=== PATIENT | female | born 1955 | race Caucasian/White ===

== ENCOUNTER 2019-04-23 17:56 | Inpatient (IN) | payer BC ==
[~2019-04-23] VITALS: Ht 154.9 cm; Wt 73.6 kg
[2019-04-23 18:52] LABS: BASOPHILS # (AUTO) 0.1 X10'3 (0-0.2); BASOPHILS % (AUTO) 1.2 % (0-1); EOSINOPHILS # (AUTO) 0.2 X10'3 (0-0.9); EOSINOPHILS % (AUTO) 2.8 % (0-6); LYMPHOCYTES # (AUTO) 1.8 X10'3 (1.1-4.8); LYMPHOCYTES % (AUTO) 21.4 % (21-51); MEAN CORPUSCULAR HEMOGLOBIN 28.9 PG (27.0-31.0); MEAN CORPUSCULAR HGB CONC 33.3 g/dL (33.0-36.5); MEAN CORPUSCULAR VOLUME 86.8 FL (78-98); MEAN PLATELET VOLUME 9.8 FL (7.4-10.4); MONOCYTES # (AUTO) 0.5 X10'3 (0-0.9); MONOCYTES % (AUTO) 6.1 % (2-12); NEUTROPHILS # (AUTO) 5.9 X10'3 (1.8-7.7); NEUTROPHILS % (AUTO) 68.5 % (42-75); PLATELET COUNT 251 X10'3 (140-440); RED BLOOD COUNT 4.84 X10'6 (4.20-5.60); RED CELL DISTRIBUTION WIDTH 14.8 % (11.5-14.5); WHITE BLOOD COUNT 8.6 X10'3 (4.5-11.0)
[2019-04-23 18:57] LABS: CLARITY,URINE CLEAR (Clear); COLOR,URINE YELLOW (Yellow); GLUCOSE, URINE NEGATIVE (Neg); KETONES,URINE NEGATIVE (Neg); LEUKOCYTE ESTERASE ,URINE TRACE (Neg); NITRITES, URINE NEGATIVE (Neg); OCCULT BLOOD,URINE NEGATIVE (Neg); PH,URINE 7.5 (4.8-8.0); PROTEIN,URINE NEGATIVE (Neg); UROBILINOGEN,URINE 0.2 E.U/dL (0.2-1.0)
[2019-04-23 18:59] LABS: UA COLLECTION TYPE CLN CATCH MIDSTREAM
[2019-04-23 19:10] LABS: BACTERIA,URINE NONE SEEN /HPF (Neg); MUCUS STRANDS NONE SEEN /LPF (Neg); RBC,URINE 0-2 /HPF (0-2); SQUAMOUS EPITHELIAL CELL,UR FEW /LPF (FEW); WBC,URINE 0-4 /HPF (0-4)
[2019-04-23 19:14] LABS: ALANINE AMINOTRANSFERASE 92 U/L (12-78); ALBUMIN 3.9 G/DL (3.4-5.0); ALKALINE PHOSPHATASE 100 IU/L (46-116); ANION GAP 9 (8-16); ASPARTATE AMINO TRANSFERASE 72 U/L (10-37); BILIRUBIN,TOTAL 0.3 MG/DL (0.1-1.0); BLOOD UREA NITROGEN 22 MG/DL (7-18); BUN/CREATININE RATIO 19.8 (6.6-38.0); CHLORIDE 105 MMOL/L (99-107); CREATININE 1.11 MG/DL (0.40-0.90); GLUCOSE 132 MG/DL (70-104); LIPASE 201 U/L (73-393); POTASSIUM 3.8 MMOL/L (3.5-5.1); SODIUM 140 MMOL/L (135-145); TOTAL CARBON DIOXIDE 25.6 MMOL/L (24-32); eGFR 50 ML/MIN
[2019-04-23 19:22] LABS: CALCIUM 10.5 MG/DL (8.5-10.1)
[2019-04-23] MEDS ORDERED: tamsulosin 0.4mg capsule PO STA (19:34)
[2019-04-23] MEDS ORDERED: ketorolac trometh. 30mg/ml inj. IV ONE (19:35)
[2019-04-23] MEDS ORDERED: normal saline 1000ML IV soln IV ONE (19:35)
--- NOTE | 2019-04-23 19:46 | NUR ---
CLEM Ruff in room to evaluate Pt. Provider informing Pt she has a kidney stone.
[2019-04-23] MEDS ORDERED: ondansetron/PF 4mg/2ml inj IV ONE ×2 (19:50→21:55)
[2019-04-23] MEDS ORDERED: morphine 4 MG/ML inj SYRINge IV ONE (19:50)
[2019-04-23] MEDS ORDERED: fentaNYL/PF 50MCG/1 ML 2ML syringe IV ONE (20:20)
[2019-04-23] MEDS ORDERED: HYDROmorphone 1 mg/ml syringe IV ONE (20:55)
[2019-04-23] MEDS ORDERED: FENO145T36 PO (21:07)
[2019-04-23] MEDS ORDERED: ERGO500014 PO (21:07)
[2019-04-23] MEDS ORDERED: DIPH50CA3 PO (21:07)
[2019-04-23] MEDS ORDERED: LEVO25TA7 PO (21:07)
[2019-04-23] MEDS ORDERED: HYDROmorphone 1 mg/ml syringe IV PRN (22:05)
[2019-04-23] MEDS ORDERED: acetaminophen 325mg tablet PO PRN (22:05)
[2019-04-23] MEDS ORDERED: CADD PCA waste documentation MC PRN (22:10)
[2019-04-23] MEDS ORDERED: amLODIPine 5mg tablet PO ONE (22:10)
[2019-04-23] MEDS ORDERED: naloxone 0.4 mg/ml inj IV PRN (22:10)
[2019-04-23] MEDS ORDERED: proCHLORperazine 10 MG/2 ml inj IV PRN (22:55)
[2019-04-23] MEDS: HYDROmorphone/NS 1 mg/ml CADD 50 ML IV SCH (23:08)
[2019-04-24] MEDS: normal saline 1000ml 1,000 ML IV SCH ×5 (00:05→21:17)
--- NOTE | 2019-04-24 00:25 | NUR ---
PT VOMITED AFTER GIVING AMLODIPINE WITH SIP OF WATER. PT NOW NOT NAUSEATED ANYMORE, AND RESTING COMFORTABLY WITH PAIN MANAGED. WILL CONTINUE TO MONITOR PT
[2019-04-24] MEDS: HYDROmorphone/NS 1 mg/ml CADD 50 ML IV SCH ×11 (01:07→21:00)
--- NOTE | 2019-04-24 01:09 | NUR ---
pt resting comfortably, pain 3/10. pt hr decreases down to 49 bpm, pt placed on signal tester. will continue to monitor
--- NOTE | 2019-04-24 01:20 | NUR ---
PT HR CONTINUED TO DROP TO LOW 40S WHILE PT ASLEEP. CONCETTA JIN NOTIFIED AND CAME TO BEDSIDE AND PT AWOKE AND HR UP TO 60S. CONCETTA JIN STATES EVERYTHING LOOKS OK. WILL CONTINUE TO MONITOR
[2019-04-24] MEDS: ondansetron/PF 4mg/2ml inj IV PRN ×4 (02:35→20:26)
--- NOTE | 2019-04-24 02:43 | NUR ---
pt placed on hospital bed for comfort
[2019-04-24 03:15] LABS: BASOPHILS # (AUTO) 0.1 X10'3 (0-0.2); BASOPHILS % (AUTO) 0.8 % (0-1); EOSINOPHILS # (AUTO) 0.1 X10'3 (0-0.9); EOSINOPHILS % (AUTO) 0.8 % (0-6); HEMATOCRIT 36.5 % (35.0-45.0); HEMOGLOBIN 12.5 g/dl (12.0-16.0); LYMPHOCYTES # (AUTO) 1.3 X10'3 (1.1-4.8); LYMPHOCYTES % (AUTO) 15.2 % (21-51); MEAN CORPUSCULAR HEMOGLOBIN 29.2 PG (27.0-31.0); MEAN CORPUSCULAR HGB CONC 34.2 g/dL (33.0-36.5); MEAN CORPUSCULAR VOLUME 85.4 FL (78-98); MEAN PLATELET VOLUME 10.1 FL (7.4-10.4); MONOCYTES # (AUTO) 0.4 X10'3 (0-0.9); MONOCYTES % (AUTO) 4.9 % (2-12); NEUTROPHILS # (AUTO) 6.9 X10'3 (1.8-7.7); NEUTROPHILS % (AUTO) 78.3 % (42-75); PLATELET COUNT 195 X10'3 (140-440); RED BLOOD COUNT 4.28 X10'6 (4.20-5.60); WHITE BLOOD COUNT 8.8 X10'3 (4.5-11.0)
[2019-04-24 03:45] LABS: ALANINE AMINOTRANSFERASE 76 U/L (12-78); ALBUMIN 3.6 G/DL (3.4-5.0); ALKALINE PHOSPHATASE 87 IU/L (46-116); ANION GAP 10 (8-16); ASPARTATE AMINO TRANSFERASE 56 U/L (10-37); BILIRUBIN,TOTAL 0.3 MG/DL (0.1-1.0); BLOOD UREA NITROGEN 18 MG/DL (7-18); BUN/CREATININE RATIO 18.4 (6.6-38.0); CALCIUM 8.1 MG/DL (8.5-10.1); CHLORIDE 108 MMOL/L (99-107); CREATININE 0.98 MG/DL (0.40-0.90); GLUCOSE 131 MG/DL (70-104); POTASSIUM 3.8 MMOL/L (3.5-5.1); SODIUM 142 MMOL/L (135-145); TOTAL CARBON DIOXIDE 24.1 MMOL/L (24-32); TOTAL PROTEIN 7.2 G/DL (6.4-8.2); eGFR 58 ML/MIN
[2019-04-24 04:27] VITALS: BP 189/87
--- NOTE | 2019-04-24 06:44 | NUR ---
REPORT GIVEN TO AZ SANDOVAL.
[2019-04-24] MEDS: levoTHYROXINE 25mcg tablet PO SCH (07:17)
--- NOTE | 2019-04-24 11:06 | NUR ---
Student documentation: I have reviewed all interventions, assessments performed and documented by Red Olson. Student Medication Administration: For this medication-pass time frame, all medication were reviewed, dispensed, administered and documented per hospital policy by Red Olson.
--- NOTE | 2019-04-24 15:31 | NUR ---
ASSUMED CARE OF PATIENT FROM LORI BERNARDO, NO QUESTIONS, I AGREE WITH PRIOR ASSESSMENT. PATIENT SITTING WITH HOB @ 30 DEGREES. PATIENT STATES NO DISTRESS OR PAIN AT THIS TIME.
--- NOTE | 2019-04-24 17:07 | NUR ---
patient up to restroom, pt called because she felt something weird and when she looked into urine hat there was a brown object in there. Nursing in to assess, sample collected into sterile urine cup and Dr. Logan office called. I talked with his nurse and she will text him to see if he wants any testing done on sample.
[2019-04-24 18:32] VITALS: BP 131/58
[2019-04-24] MEDS ORDERED: proCHLORperazine 10 MG/2 ml inj IV PRN (20:40)
[2019-04-24] MEDS ORDERED: HYDROcodone/acetaminophen 5mg/325mg tablet PO PRN (20:40)
--- NOTE | 2019-04-24 20:40 | NUR ---
Dr. Tirado notified regarding nausea unrelieved by Zofran 8 mg IV given, orders received for Compazine 5 mg IV Q 6 hours prn nausea and [place] 5 mg PO Q 4 prn pain. Pt changed to Reg JUSTICE. Addendum: 04/24/19 at 2243 by Damaris Pierre RN Amended: Links added.
[2019-04-24] MEDS ORDERED: tamsulosin 0.4mg capsule PO SCH (21:00)
--- NOTE | 2019-04-24 22:27 | NUR ---
Report called by AZ Forde. awaiting patient arrival to unit
--- NOTE | 2019-04-24 22:28 | NUR ---
Problems reprioritized. Patient report given, questions answered & plan of care reviewed with AZ Salcedo.
--- NOTE | 2019-04-24 22:36 | NUR ---
pt arrived to unit from ortho/neuro. VSS, oriented to room, pt transferred self to bed. will continue to monitor
[2019-04-25] VITALS: BP 131/66
[2019-04-25 05:01] LABS: BASOPHILS # (AUTO) 0.1 X10'3 (0-0.2); EOSINOPHILS # (AUTO) 0.2 X10'3 (0-0.9); EOSINOPHILS % (AUTO) 3.5 % (0-6); HEMATOCRIT 32.7 % (35.0-45.0); HEMOGLOBIN 11.2 g/dl (12.0-16.0); LYMPHOCYTES # (AUTO) 1.5 X10'3 (1.1-4.8); LYMPHOCYTES % (AUTO) 28.7 % (21-51); MEAN CORPUSCULAR HEMOGLOBIN 29.7 PG (27.0-31.0); MEAN CORPUSCULAR HGB CONC 34.2 g/dL (33.0-36.5); MEAN CORPUSCULAR VOLUME 86.9 FL (78-98); MEAN PLATELET VOLUME 10.1 FL (7.4-10.4); MONOCYTES # (AUTO) 0.4 X10'3 (0-0.9); MONOCYTES % (AUTO) 7.8 % (2-12); PLATELET COUNT 164 X10'3 (140-440); RED BLOOD COUNT 3.76 X10'6 (4.20-5.60); RED CELL DISTRIBUTION WIDTH 14.8 % (11.5-14.5); WHITE BLOOD COUNT 5.1 X10'3 (4.5-11.0)
[2019-04-25 05:22] LABS: ALANINE AMINOTRANSFERASE 71 U/L (12-78); ALBUMIN 2.8 G/DL (3.4-5.0); ALBUMIN/GLOBULIN RATIO 0.9 (1.1-1.5); ALKALINE PHOSPHATASE 72 IU/L (46-116); ANION GAP 7 (8-16); ASPARTATE AMINO TRANSFERASE 61 U/L (10-37); BILIRUBIN,TOTAL 0.3 MG/DL (0.1-1.0); BLOOD UREA NITROGEN 11 MG/DL (7-18); BUN/CREATININE RATIO 11.6 (6.6-38.0); CALCIUM 7.7 MG/DL (8.5-10.1); CHLORIDE 109 MMOL/L (99-107); CREATININE 0.95 MG/DL (0.40-0.90); GLUCOSE 96 MG/DL (70-104); POTASSIUM 3.4 MMOL/L (3.5-5.1); SODIUM 142 MMOL/L (135-145); TOTAL CARBON DIOXIDE 25.7 MMOL/L (24-32); eGFR 60 ML/MIN
--- NOTE | 2019-04-25 06:41 | NUR ---
Problems reprioritized. Patient report given, questions answered & plan of care reviewed with AZ Celeste.
[2019-04-25 07:00] VITALS: BP 130/67
[2019-04-25] MEDS: levoTHYROXINE 25mcg tablet PO SCH (08:31)
[2019-04-25] MEDS: normal saline 1000ml 1,000 ML IV SCH ×2 (08:31→14:01)
[2019-04-25 11:00] VITALS: BP 164/70
[2019-04-25] MEDS ORDERED: tamsulosin capsule PO (13:55)
== END 2019-04-25 15:15 | disposition home or self-care (01) | DRG 694 ==
LOC: ER 17:57 → ED HOLD 22:54 → ORTHO 4S 04-24 03:58 → SUR 3N 04-24 22:44
PROVIDERS: ADMIT Internal Medicine; ATTEND Family Medicine
DX: N13.2 Hydronephrosis with renal and ureteral calculous obstruction (principal); M79.7 Fibromyalgia; G89.29 Other chronic pain; M19.90 Unspecified osteoarthritis, unspecified site; Z87.442 Personal history of urinary calculi; Z90.49 Acquired absence of other specified parts of digestive tract; Z88.1 Allergy status to other antibiotic agents
CPT/HCPCS: 36415; 74176; 80053; 81001; 83690; 85025; 87081; 87088; 96361; 96374; 96375; 96376; 99285; G0378; J0780; J1170; J1885; J2270; J2405; J3010; J7030

== ENCOUNTER 2021-02-06 12:53 | Emergency (ER) | payer BC, SELFPAY ==
[~2021-02-06] VITALS: Ht 152.4 cm; Wt 73.0 kg
[~2021-02-06 12:53] MED LIST: DIPH50CA3 PO; ERGO500014 PO; FENO145T26 PO; LEVO25TA7 PO; tamsulosin capsule PO
[2021-02-06 12:57] VITALS: BP 151/78
[2021-02-06] MEDS ORDERED: DEXA6TAB6 PO (14:50)
== END 2021-02-06 15:08 | disposition home or self-care (01) ==
LOC: ER 12:55
DX: R50.9 Fever, unspecified (principal); U07.1 COVID-19; G89.29 Other chronic pain; M54.9 Dorsalgia, unspecified; Z87.442 Personal history of urinary calculi
CPT/HCPCS: 71045; 87502; 87503; 87635; 99284; C9803

== ENCOUNTER 2021-02-12 06:05 | Inpatient (IN) | payer BC ==
[~2021-02-12] VITALS: Ht 152.4 cm; Wt 73.6 kg
[~2021-02-12 06:05] MED LIST changes: +DEXA6TAB6 PO
[2021-02-12] MEDS ORDERED: DEXAMETHASONE 6 MG TABLET PO SCH (08:00)
--- NOTE | 2021-02-12 08:54 | NUR ---
Son Jhonny, , will be waiting in car if its too hot outside in [place].
[2021-02-12 09:40] LABS: BASOPHILS % (AUTO) 0.1 % (0-1); EOSINOPHILS % (AUTO) 0 % (0-6); HEMATOCRIT 40.9 % (35.0-45.0); HEMOGLOBIN 13.6 g/dl (12.0-16.0); LYMPHOCYTES # (AUTO) 0.9 X10'3 (1.1-4.8); LYMPHOCYTES % (AUTO) 10.4 % (21-51); MEAN CORPUSCULAR HEMOGLOBIN 28.4 PG (27.0-31.0); MEAN CORPUSCULAR HGB CONC 33.3 g/dL (33.0-36.5); MEAN CORPUSCULAR VOLUME 85.3 FL (78-98); MEAN PLATELET VOLUME 9.4 FL (7.4-10.4); MONOCYTES # (AUTO) 0.7 X10'3 (0-0.9); MONOCYTES % (AUTO) 7.7 % (2-12); NEUTROPHILS # (AUTO) 6.9 X10'3 (1.8-7.7); NEUTROPHILS % (AUTO) 81.8 % (42-75); PLATELET COUNT 190 X10'3 (140-440); RED CELL DISTRIBUTION WIDTH 15.7 % (11.5-14.5); WHITE BLOOD COUNT 8.5 X10'3 (4.5-11.0)
[2021-02-12 09:52] LABS: PARTIAL THROMBOPLASTIN TIME 28 SECONDS (22-32)
[2021-02-12 09:53] LABS: ALANINE AMINOTRANSFERASE 121 U/L (12-78); ALBUMIN 3.2 G/DL (3.4-5.0); ALBUMIN/GLOBULIN RATIO 0.8 (1.1-1.5); ALKALINE PHOSPHATASE 114 IU/L (46-116); ANION GAP 11 (8-16); ASPARTATE AMINO TRANSFERASE 69 U/L (10-37); BILIRUBIN,TOTAL 0.5 MG/DL (0.1-1.0); BLOOD UREA NITROGEN 33 MG/DL (7-18); CALCIUM 8.5 MG/DL (8.5-10.1); CHLORIDE 102 MMOL/L (99-107); CREATININE 1.03 MG/DL (0.40-0.90); GLUCOSE 93 MG/DL (70-104); SODIUM 139 MMOL/L (135-145); TOTAL CARBON DIOXIDE 26.2 MMOL/L (24-32); TOTAL PROTEIN 7.4 G/DL (6.4-8.2); eGFR 54 ML/MIN
[2021-02-12 10:06] LABS: C-REACTIVE PROTEIN 5.48 MG/DL (0.0-0.5); FERRITIN 336 NG/ML (8-252); LACTATE DEHYDROGENASE 290 U/L (81-234)
[2021-02-12] MEDS ORDERED: magnesium hydroxide 30ml (MOM) UD suspension PO PRN (10:45)
[2021-02-12] MEDS ORDERED: potassium Cl 40MEQ/1/2NS 520ml 520 ML IV PRN ×2 (10:45)
[2021-02-12] MEDS ORDERED: magnesium 4gm in 100ml NS 100 ML IV PRN (10:45)
[2021-02-12] MEDS ORDERED: acetaminophen 325mg tablet PO PRN (10:45)
[2021-02-12] MEDS ORDERED: mag hydrox/Alum hydrox/simeth 30ml oral suspension PO PRN (10:45)
[2021-02-12] MEDS ORDERED: magnesium 2GM in 50ml NS 50 ML IV PRN (10:45)
[2021-02-12] MEDS ORDERED: albuterol 2.5 MG/3 ML nebule NEB PRN (10:45)
[2021-02-12] MEDS ORDERED: potassium Cl 20 mEq SR tablet PO PRN ×2 (10:45)
[2021-02-12] MEDS: ALBUTEROL INHALER 1 PUFF/90 MCG INHALER IH PRN (11:45)
[2021-02-12] MEDS ORDERED: DEXA6TAB PO (11:57)
[2021-02-12] MEDS ORDERED: REMDESIVIR (EUA) 100mg inj. 200 MG in normal saline 100ml IV soln 100 ML IV ONE (12:00)
[2021-02-12] MEDS: normal saline 1000ml 1,000 ML IV SCH ×2 (12:45→21:49)
[2021-02-12 14:51] VITALS: BP 128/74
--- NOTE | 2021-02-12 18:27 | NUR ---
Problems reprioritized. Patient report given, questions answered & plan of care reviewed with Kina BERNARDO.
--- NOTE | 2021-02-12 18:31 | NUR ---
Patient in room [facility]. I have received report from AZ WILLIAMSON and had the opportunity to ask questions and assume patient care. Addendum: 02/12/21 at 1832 by Kina Skelton RN Amended: Links added.
[2021-02-12 20:00] VITALS: BP 149/78
[2021-02-12] MEDS: K and/or MAG REPLACEMENT MC SCH (20:00)
--- NOTE | 2021-02-12 21:30 | NUR ---
PT TOOK HS MEDS ASSISTED IN CARE. TAKING PO FLUIDS FAIR. MEDICATED FOR BODY ACHES WITH PO TYLENOL.
[2021-02-12] MEDS: enoxaparin 40mg/0.4ml syringe SQ SCH (21:47)
[2021-02-12] MEDS: DEXAMETHASONE 6 MG TABLET PO SCH (21:51)
[2021-02-13 00:39] VITALS: BP 140/77
--- NOTE | 2021-02-13 01:00 | NUR ---
PT ASSISTED UP TO BRP TOLERATED FAIR SATS DOWN TO 90% WITH THIS. WASHED HER FACE AND FRESH CONTAINER OF ICE CHIPS GIVEN TO HER. ASSISTED BACK INTO BED AND TOLERATED FAIR.
--- NOTE | 2021-02-13 02:29 | NUR ---
DR CASTANEDA NOTIFIED PT ONLY HAS TYLENOL FOR PAIN. RECEIVED ORDER SHE CAN HAVE TORADOL 15MG IV PRN Q 6 HOURS FOR PAIN
[2021-02-13] MEDS ORDERED: ketorolac tromethamine 15mg/ml inj. IM PRN (02:30)
--- NOTE | 2021-02-13 04:20 | NUR ---
RESTING APPEARS COMFORTABLE.
[2021-02-13] MEDS: ketorolac tromethamine 15mg/ml inj. IV PRN (05:29)
[2021-02-13 05:31] VITALS: BP 143/79
--- NOTE | 2021-02-13 05:34 | NUR ---
medicated for pain with iv toradol and vss. IS unit given to pt.
--- NOTE | 2021-02-13 06:07 | NUR ---
Problems reprioritized. Patient report given, questions answered & plan of care reviewed with CLAY BERNARDO. Addendum: 02/13/21 at 0608 by Kina Skelton RN Amended: Links added.
[2021-02-13 06:44] LABS: ALANINE AMINOTRANSFERASE 89 U/L (12-78); ALBUMIN 2.4 G/DL (3.4-5.0); ALBUMIN/GLOBULIN RATIO 0.6 (1.1-1.5); ALKALINE PHOSPHATASE 105 IU/L (46-116); ANION GAP 11 (8-16); BILIRUBIN,TOTAL 0.5 MG/DL (0.1-1.0); BLOOD UREA NITROGEN 38 MG/DL (7-18); BUN/CREATININE RATIO 46.9 (6.6-38.0); C-REACTIVE PROTEIN 3.43 MG/DL (0.0-0.5); CALCIUM 7.8 MG/DL (8.5-10.1); CHLORIDE 110 MMOL/L (99-107); CREATININE 0.81 MG/DL (0.40-0.90); GLUCOSE 159 MG/DL (70-104); MAGNESIUM 2.3 MG/DL (1.5-2.4); SODIUM 141 MMOL/L (135-145); TOTAL CARBON DIOXIDE 20.4 MMOL/L (24-32); TOTAL PROTEIN 6.2 G/DL (6.4-8.2); eGFR 71 ML/MIN
--- NOTE | 2021-02-13 06:45 | NUR ---
I have received report from NOC shift RN and had the opportunity to ask questions and assume patient care.
[2021-02-13 06:47] LABS: ASPARTATE AMINO TRANSFERASE 55 U/L (10-37)
[2021-02-13 07:53] LABS: BASOPHILS % (AUTO) 0.1 % (0-1); EOSINOPHILS % (AUTO) 0 % (0-6); HEMATOCRIT 37.7 % (35.0-45.0); HEMOGLOBIN 12.5 g/dl (12.0-16.0); LYMPHOCYTES # (AUTO) 0.7 X10'3 (1.1-4.8); LYMPHOCYTES % (AUTO) 14.2 % (21-51); MEAN CORPUSCULAR HEMOGLOBIN 27.7 PG (27.0-31.0); MEAN CORPUSCULAR HGB CONC 33.2 g/dL (33.0-36.5); MEAN CORPUSCULAR VOLUME 83.6 FL (78-98); MEAN PLATELET VOLUME 9.1 FL (7.4-10.4); MONOCYTES # (AUTO) 0.2 X10'3 (0-0.9); MONOCYTES % (AUTO) 4.9 % (2-12); NEUTROPHILS # (AUTO) 4.2 X10'3 (1.8-7.7); NEUTROPHILS % (AUTO) 80.8 % (42-75); PLATELET COUNT 157 X10'3 (140-440); RED BLOOD COUNT 4.51 X10'6 (4.20-5.60); RED CELL DISTRIBUTION WIDTH 15.4 % (11.5-14.5); WHITE BLOOD COUNT 5.1 X10'3 (4.5-11.0)
[2021-02-13] MEDS: DEXAMETHASONE 6 MG TABLET PO SCH ×2 (08:24→19:35)
[2021-02-13] MEDS: normal saline 1000ml 1,000 ML IV SCH (08:24)
[2021-02-13] MEDS: REMDESIVIR (EUA) 100mg inj. 100 MG in normal saline 100ml IV soln 100 ML IV SCH (08:25)
[2021-02-13] MEDS: K and/or MAG REPLACEMENT MC SCH ×2 (08:26→20:30)
[2021-02-13 08:28] VITALS: BP 135/76
--- NOTE | 2021-02-13 08:54 | NUR ---
PAGER ID: [phone] MESSAGE: [phone] Keon Leonard can we start her daily home medications? I have them listed on a progress note. Yelena [phone]
[2021-02-13 09:02] LABS: D-DIMER 0.27 MG/L FEU (0-0.50)
[2021-02-13] MEDS: ALBUTEROL INHALER 1 PUFF/90 MCG INHALER IH PRN (09:02)
[2021-02-13] MEDS ORDERED: ergocalciferol (vit D2) capsule 50,000 UNITS (1,250mcg) CAPSULE PO SCH ×2 (09:15→09:29)
--- NOTE | 2021-02-13 11:10 | NUR ---
Malnutrition consult: Pt admitted w/ Magy and SOB, has had decreased appetite for about 10 days per EMR. No weight loss reported, no edema noted, unable to perform NFPE d/t pt in isolation. Pt's decreased PO intake likely d/t acute illness. Pt does not meet minimum criteria for malnutrition at this time. Pt newly admitted, will continue to monitor PO trends and need for ONS. Calorie count consult: Discussed w/ RN, order placed in error. Addendum: 02/13/21 at [address] Amended: Links added.
[2021-02-13 11:40] VITALS: BP 145/81
[2021-02-13] MEDS: losartan 25mg tablet PO SCH (13:15)
[2021-02-13] MEDS: losartan 50mg tablet PO SCH (13:15)
[2021-02-13] MEDS: HYDROchlorothiazide 25mg tablet PO SCH (13:15)
[2021-02-13] MEDS: ondansetron/PF 4mg/2ml inj IV PRN (13:20)
[2021-02-13] MEDS: metFORMIN 500mg tablet PO SCH (17:18)
[2021-02-13 19:32] VITALS: BP 143/78
[2021-02-13] MEDS: enoxaparin 40mg/0.4ml syringe SQ SCH (19:36)
--- NOTE | 2021-02-14 00:15 | NUR ---
Problems reprioritized. Patient report given, questions answered & plan of care reviewed with Phil BERNARDO.
--- NOTE | 2021-02-14 00:28 | NUR ---
Patient in room [facility] 341. I have received report from AZ Kirk and had the opportunity to ask questions and assume patient care. Patient is resting comfortably. I agree with previous nurses assessment.
[2021-02-14 02:25] VITALS: BP 142/72
[2021-02-14] MEDS: ondansetron/PF 4mg/2ml inj IV PRN (02:41)
[2021-02-14] MEDS: ketorolac tromethamine 15mg/ml inj. IV PRN ×2 (02:44→20:41)
--- NOTE | 2021-02-14 06:11 | NUR ---
Problems reprioritized. Patient report given, questions answered & plan of care reviewed with AZ Maurice.
--- NOTE | 2021-02-14 06:15 | NUR ---
Patient in room [facility] 341. I have received report from Phil BERNARDO and had the opportunity to ask questions and assume patient care.
[2021-02-14 07:04] LABS: BASOPHILS % (AUTO) 0 % (0-1); EOSINOPHILS % (AUTO) 0 % (0-6); HEMATOCRIT 36.4 % (35.0-45.0); HEMOGLOBIN 12.2 g/dl (12.0-16.0); LYMPHOCYTES # (AUTO) 0.7 X10'3 (1.1-4.8); LYMPHOCYTES % (AUTO) 10.3 % (21-51); MEAN CORPUSCULAR HEMOGLOBIN 28.3 PG (27.0-31.0); MEAN CORPUSCULAR HGB CONC 33.5 g/dL (33.0-36.5); MEAN CORPUSCULAR VOLUME 84.5 FL (78-98); MEAN PLATELET VOLUME 9.8 FL (7.4-10.4); MONOCYTES # (AUTO) 0.3 X10'3 (0-0.9); MONOCYTES % (AUTO) 4.8 % (2-12); NEUTROPHILS # (AUTO) 5.7 X10'3 (1.8-7.7); NEUTROPHILS % (AUTO) 84.9 % (42-75); PLATELET COUNT 184 X10'3 (140-440); RED BLOOD COUNT 4.31 X10'6 (4.20-5.60); RED CELL DISTRIBUTION WIDTH 15.7 % (11.5-14.5); WHITE BLOOD COUNT 6.7 X10'3 (4.5-11.0)
[2021-02-14 07:14] LABS: D-DIMER 0.24 MG/L FEU (0-0.50)
[2021-02-14 07:30] LABS: ALANINE AMINOTRANSFERASE 74 U/L (12-78); ALBUMIN 2.4 G/DL (3.4-5.0); ALBUMIN/GLOBULIN RATIO 0.7 (1.1-1.5); ALKALINE PHOSPHATASE 98 IU/L (46-116); ANION GAP 12 (8-16); ASPARTATE AMINO TRANSFERASE 32 U/L (10-37); BILIRUBIN,TOTAL 0.4 MG/DL (0.1-1.0); BLOOD UREA NITROGEN 35 MG/DL (7-18); BUN/CREATININE RATIO 41.7 (6.6-38.0); C-REACTIVE PROTEIN 1.38 MG/DL (0.0-0.5); CALCIUM 7.8 MG/DL (8.5-10.1); CHLORIDE 110 MMOL/L (99-107); CREATININE 0.84 MG/DL (0.40-0.90); GLUCOSE 157 MG/DL (70-104); MAGNESIUM 2.2 MG/DL (1.5-2.4); POTASSIUM 4.1 MMOL/L (3.5-5.1); SODIUM 142 MMOL/L (135-145); TOTAL CARBON DIOXIDE 20.3 MMOL/L (24-32); eGFR 68 ML/MIN
[2021-02-14] MEDS: K and/or MAG REPLACEMENT MC SCH ×2 (08:00→20:00)
[2021-02-14 09:26] VITALS: BP 139/78
[2021-02-14] MEDS: levoTHYROXINE 112mcg tablet PO SCH (09:31)
[2021-02-14] MEDS: DEXAMETHASONE 6 MG TABLET PO SCH ×2 (09:32→20:35)
[2021-02-14] MEDS: HYDROchlorothiazide 25mg tablet PO SCH (09:33)
[2021-02-14] MEDS: losartan 50mg tablet PO SCH (09:33)
[2021-02-14] MEDS: REMDESIVIR (EUA) 100mg inj. 100 MG in normal saline 100ml IV soln 100 ML IV SCH (09:34)
[2021-02-14] MEDS: losartan 25mg tablet PO SCH (10:00)
[2021-02-14 14:00] VITALS: BP 146/79
[2021-02-14] MEDS ORDERED: DIPH-930 PO (15:34)
[2021-02-14] MEDS: metFORMIN 500mg tablet PO SCH (18:28)
--- NOTE | 2021-02-14 18:29 | NUR ---
Problems reprioritized. Patient report given, questions answered & plan of care reviewed with Lilo BERNARDO.
--- NOTE | 2021-02-14 18:54 | NUR ---
Patient in room [facility] 341. I have received report from Kaylene BERNARDO and had the opportunity to ask questions and assume patient care. Pt given her dinner tray, she is on 6L oxygen via N/C, IV is saline locked, she has no signs of distress. Will continue to monitor.
[2021-02-14 20:00] VITALS: BP 138/76
[2021-02-14] MEDS: enoxaparin 40mg/0.4ml syringe SQ SCH (20:35)
[2021-02-15] MEDS: DIPHENHYDRAMINE PO PRN ×2 (00:32→22:37)
[2021-02-15 00:38] VITALS: BP 145/76
[2021-02-15 06:00] LABS: BASOPHILS % (AUTO) 0.1 % (0-1); EOSINOPHILS % (AUTO) 0 % (0-6); HEMATOCRIT 39.3 % (35.0-45.0); LYMPHOCYTES # (AUTO) 0.6 X10'3 (1.1-4.8); LYMPHOCYTES % (AUTO) 8.7 % (21-51); MEAN CORPUSCULAR HEMOGLOBIN 28.2 PG (27.0-31.0); MEAN CORPUSCULAR HGB CONC 33.1 g/dL (33.0-36.5); MEAN CORPUSCULAR VOLUME 85.1 FL (78-98); MEAN PLATELET VOLUME 9.6 FL (7.4-10.4); MONOCYTES # (AUTO) 0.3 X10'3 (0-0.9); MONOCYTES % (AUTO) 4.9 % (2-12); NEUTROPHILS # (AUTO) 5.5 X10'3 (1.8-7.7); NEUTROPHILS % (AUTO) 86.3 % (42-75); PLATELET COUNT 209 X10'3 (140-440); RED BLOOD COUNT 4.62 X10'6 (4.20-5.60); RED CELL DISTRIBUTION WIDTH 15.4 % (11.5-14.5); WHITE BLOOD COUNT 6.3 X10'3 (4.5-11.0)
[2021-02-15 06:09] LABS: D-DIMER 0.24 MG/L FEU (0-0.50)
--- NOTE | 2021-02-15 06:12 | NUR ---
Problems reprioritized. Patient report given, questions answered & plan of care reviewed with Kaylene BERNARDO.
--- NOTE | 2021-02-15 06:18 | NUR ---
Patient in room [facility] 341. I have received report from Sintia BERNARDO and had the opportunity to ask questions and assume patient care.
[2021-02-15 06:20] LABS: ALANINE AMINOTRANSFERASE 67 U/L (12-78); ALBUMIN 2.5 G/DL (3.4-5.0); ALBUMIN/GLOBULIN RATIO 0.7 (1.1-1.5); ALKALINE PHOSPHATASE 99 IU/L (46-116); ANION GAP 8 (8-16); ASPARTATE AMINO TRANSFERASE 26 U/L (10-37); BILIRUBIN,TOTAL 0.5 MG/DL (0.1-1.0); BLOOD UREA NITROGEN 34 MG/DL (7-18); BUN/CREATININE RATIO 38.6 (6.6-38.0); C-REACTIVE PROTEIN 0.66 MG/DL (0.0-0.5); CALCIUM 8.2 MG/DL (8.5-10.1); CHLORIDE 106 MMOL/L (99-107); CREATININE 0.88 MG/DL (0.40-0.90); GLUCOSE 204 MG/DL (70-104); MAGNESIUM 2.4 MG/DL (1.5-2.4); POTASSIUM 4.7 MMOL/L (3.5-5.1); SODIUM 139 MMOL/L (135-145); TOTAL CARBON DIOXIDE 24.6 MMOL/L (24-32); TOTAL PROTEIN 6.3 G/DL (6.4-8.2); eGFR 65 ML/MIN
[2021-02-15] MEDS: levoTHYROXINE 112mcg tablet PO SCH (07:00)
[2021-02-15] MEDS: K and/or MAG REPLACEMENT MC SCH ×2 (08:00→20:00)
[2021-02-15] MEDS: DEXAMETHASONE 6 MG TABLET PO SCH ×2 (08:38→19:36)
[2021-02-15] MEDS: REMDESIVIR (EUA) 100mg inj. 100 MG in normal saline 100ml IV soln 100 ML IV SCH (08:38)
[2021-02-15] MEDS: HYDROchlorothiazide 25mg tablet PO SCH (08:38)
[2021-02-15] MEDS: losartan 50mg tablet PO SCH (08:40)
[2021-02-15] MEDS: losartan 25mg tablet PO SCH (08:41)
[2021-02-15 08:47] VITALS: BP 142/69
--- NOTE | 2021-02-15 12:19 | NUR ---
Initial: Pt admit for acute respiratory failure secondary to COVID-19 PNA. Pt with hx T2DM, current A1c is well controlled at 6.9%. Pt initially on a regular diet which was changed to CHO controlled. Pt averaging 25-50% PO intake not meeting estimated nutrient needs. Diet has just been changed back to regular, pending first meal since diet advancement. Per physician notes pt becomes significantly SOB with any activities. Likely that pt with poor PO intake r/t SOB. Recommend Ensure Enlive TID to optimize PO intake. ONS to be sent pending physician approval in EMR. LBM 02/12, with PRN bowel care available not documented to be given. D/w dietary to send power pudding with next meal to assist with bowel regularity. Will continue to follow closely and monitor need for further nutrition intervention. Recommendations: 1) Continue regular diet 2) Ensure Enlive TID, pending physician approval in EMR 3) Routine bowel care 4) Scaled weight this admit; weekly scaled weights thereafter Addendum: 02/15/21 at [address] Amended: Links added.
[2021-02-15] MEDS: lactose-reduced food (Ensure Enlive) - 237ml bottle PO SCH ×2 (13:00→18:00)
[2021-02-15 16:59] VITALS: BP 126/66
[2021-02-15] MEDS: metFORMIN 500mg tablet PO SCH (17:02)
[2021-02-15] MEDS: ketorolac tromethamine 15mg/ml inj. IV PRN (17:16)
--- NOTE | 2021-02-15 18:30 | NUR ---
Problems reprioritized. Patient report given, questions answered & plan of care reviewed with Sintia BERNARDO.
--- NOTE | 2021-02-15 18:58 | NUR ---
Patient in room [facility] 341. I have received report from Kaylene BERNARDO and had the opportunity to ask questions and assume patient care.
[2021-02-15] MEDS: enoxaparin 40mg/0.4ml syringe SQ SCH (19:37)
[2021-02-15 19:42] VITALS: BP 132/67
[2021-02-15 22:31] VITALS: BP 136/75
[2021-02-16 06:26] LABS: BASOPHILS % (AUTO) 0.1 % (0-1); EOSINOPHILS % (AUTO) 0 % (0-6); HEMATOCRIT 40.5 % (35.0-45.0); HEMOGLOBIN 13.5 g/dl (12.0-16.0); LYMPHOCYTES # (AUTO) 0.6 X10'3 (1.1-4.8); LYMPHOCYTES % (AUTO) 7.7 % (21-51); MEAN CORPUSCULAR HEMOGLOBIN 27.8 PG (27.0-31.0); MEAN CORPUSCULAR HGB CONC 33.2 g/dL (33.0-36.5); MEAN CORPUSCULAR VOLUME 83.8 FL (78-98); MEAN PLATELET VOLUME 9.6 FL (7.4-10.4); MONOCYTES # (AUTO) 0.3 X10'3 (0-0.9); MONOCYTES % (AUTO) 3.7 % (2-12); NEUTROPHILS # (AUTO) 6.6 X10'3 (1.8-7.7); NEUTROPHILS % (AUTO) 88.5 % (42-75); PLATELET COUNT 236 X10'3 (140-440); RED BLOOD COUNT 4.84 X10'6 (4.20-5.60); RED CELL DISTRIBUTION WIDTH 15.5 % (11.5-14.5); WHITE BLOOD COUNT 7.4 X10'3 (4.5-11.0)
--- NOTE | 2021-02-16 06:30 | NUR ---
Problems reprioritized. Patient report given, questions answered & plan of care reviewed with Fili BERNARDO.
[2021-02-16 06:32] LABS: D-DIMER 0.21 MG/L FEU (0-0.50)
[2021-02-16 06:44] LABS: ALANINE AMINOTRANSFERASE 64 U/L (12-78); ALBUMIN 2.5 G/DL (3.4-5.0); ALBUMIN/GLOBULIN RATIO 0.6 (1.1-1.5); ALKALINE PHOSPHATASE 92 IU/L (46-116); ANION GAP 11 (8-16); ASPARTATE AMINO TRANSFERASE 28 U/L (10-37); BILIRUBIN,TOTAL 0.5 MG/DL (0.1-1.0); BLOOD UREA NITROGEN 36 MG/DL (7-18); BUN/CREATININE RATIO 42.9 (6.6-38.0); C-REACTIVE PROTEIN 0.34 MG/DL (0.0-0.5); CALCIUM 8.5 MG/DL (8.5-10.1); CHLORIDE 103 MMOL/L (99-107); CREATININE 0.84 MG/DL (0.40-0.90); GLUCOSE 227 MG/DL (70-104); MAGNESIUM 2.4 MG/DL (1.5-2.4); POTASSIUM 4.6 MMOL/L (3.5-5.1); SODIUM 138 MMOL/L (135-145); TOTAL CARBON DIOXIDE 24.3 MMOL/L (24-32); TOTAL PROTEIN 6.4 G/DL (6.4-8.2); eGFR 68 ML/MIN
[2021-02-16] MEDS ORDERED: levoTHYROXINE 112mcg tablet PO SCH (07:00)
[2021-02-16 08:00] VITALS: BP 127/72
[2021-02-16] MEDS: lactose-reduced food (Ensure Enlive) - 237ml bottle PO SCH ×3 (08:00→20:22)
[2021-02-16] MEDS: K and/or MAG REPLACEMENT MC SCH ×2 (08:00→20:00)
[2021-02-16] MEDS: REMDESIVIR (EUA) 100mg inj. 100 MG in normal saline 100ml IV soln 100 ML IV SCH (09:22)
[2021-02-16] MEDS: DEXAMETHASONE 6 MG TABLET PO SCH ×2 (09:23→20:23)
[2021-02-16] MEDS: HYDROchlorothiazide 25mg tablet PO SCH (09:23)
[2021-02-16] MEDS: losartan 50mg tablet PO SCH (09:24)
[2021-02-16] MEDS: losartan 25mg tablet PO SCH (09:24)
[2021-02-16] MEDS: ketorolac tromethamine 15mg/ml inj. IV PRN ×3 (09:25→23:36)
[2021-02-16 11:00] VITALS: BP 140/75
[2021-02-16] MEDS ORDERED: LOSA25TA41 PO (15:32)
[2021-02-16] MEDS ORDERED: ALBU6.7H9 IH (15:32)
--- NOTE | 2021-02-16 15:35 | NUR ---
O2 Sat at rest on room air:_90_% If below 89%: Recovery O2 Sat at rest on __LPM:___%:___% via (mask/nasal cannula, etc..) No further documentation is necessary. If O2 Sat did not drop below 89% on room air,ambulate patient on room air. O2 Sat while ambulating on room air:___% Recovery O2 Sat while ambulating on _LPM:___% No further documentation is necessary. If patient does not drop below 89% while ambulating, he/she does not qualify for home O2. Addendum: 02/16/21 at 1547 by Raymond Mayorga RN O2 Sat at rest on room air:_90__% If below 89%: Recovery O2 Sat at rest on __LPM:___%:___% via (mask/nasal cannula, etc..) No further documentation is necessary. If O2 Sat did not drop below 89% on room air,ambulate patient on room air. O2 Sat while ambulating on room air:_86_% Recovery O2 Sat while ambulating on _LPM:__92_% No further documentation is necessary. If patient does not drop below 89% while ambulating, he/she does not qualify for home O2.
--- NOTE | 2021-02-16 18:00 | NUR ---
Dr. Cash decided to postpone discharge for this patient due to distance and location of home for home health considerations and because the rest of patients family is isolated at their house due to covid contact. Will reevaluate again at a later time.
[2021-02-16 20:00] VITALS: BP 139/78
--- NOTE | 2021-02-16 20:00 | NUR ---
denies need for pain med; aware to call nurse when med needed Addendum: 02/17/21 at 0229 by Joyce Galeas RN Amended: Links added.
[2021-02-16] MEDS: metFORMIN 500mg tablet PO SCH (20:23)
[2021-02-16] MEDS: enoxaparin 40mg/0.4ml syringe SQ SCH (20:24)
[2021-02-16 23:15] VITALS: BP 129/67
[2021-02-17] MEDS: lactose-reduced food (Ensure Enlive) - 237ml bottle PO SCH ×3 (08:00→18:00)
[2021-02-17] MEDS: K and/or MAG REPLACEMENT MC SCH ×2 (08:00→20:00)
[2021-02-17 08:05] LABS: BASOPHILS % (AUTO) 0 % (0-1); EOSINOPHILS % (AUTO) 0 % (0-6); HEMATOCRIT 40.9 % (35.0-45.0); HEMOGLOBIN 13.8 g/dl (12.0-16.0); LYMPHOCYTES # (AUTO) 0.5 X10'3 (1.1-4.8); LYMPHOCYTES % (AUTO) 4.6 % (21-51); MEAN CORPUSCULAR HGB CONC 33.7 g/dL (33.0-36.5); MEAN CORPUSCULAR VOLUME 83.3 FL (78-98); MEAN PLATELET VOLUME 9.9 FL (7.4-10.4); MONOCYTES # (AUTO) 0.5 X10'3 (0-0.9); MONOCYTES % (AUTO) 4.5 % (2-12); NEUTROPHILS # (AUTO) 9.9 X10'3 (1.8-7.7); NEUTROPHILS % (AUTO) 90.9 % (42-75); PLATELET COUNT 254 X10'3 (140-440); RED BLOOD COUNT 4.91 X10'6 (4.20-5.60); RED CELL DISTRIBUTION WIDTH 15.1 % (11.5-14.5); WHITE BLOOD COUNT 10.9 X10'3 (4.5-11.0)
[2021-02-17 08:15] LABS: ALANINE AMINOTRANSFERASE 70 U/L (12-78); ALBUMIN 2.7 G/DL (3.4-5.0); ALBUMIN/GLOBULIN RATIO 0.7 (1.1-1.5); ALKALINE PHOSPHATASE 101 IU/L (46-116); ANION GAP 10 (8-16); ASPARTATE AMINO TRANSFERASE 26 U/L (10-37); BILIRUBIN,TOTAL 0.4 MG/DL (0.1-1.0); BLOOD UREA NITROGEN 51 MG/DL (7-18); C-REACTIVE PROTEIN 0.17 MG/DL (0.0-0.5); CALCIUM 9.6 MG/DL (8.5-10.1); CHLORIDE 104 MMOL/L (99-107); CREATININE 0.98 MG/DL (0.40-0.90); GLUCOSE 275 MG/DL (70-104); MAGNESIUM 2.3 MG/DL (1.5-2.4); POTASSIUM 4.8 MMOL/L (3.5-5.1); SODIUM 139 MMOL/L (135-145); TOTAL PROTEIN 6.5 G/DL (6.4-8.2); eGFR 57 ML/MIN
[2021-02-17 08:21] LABS: D-DIMER < 0.19 MG/L FEU (0-0.50)
[2021-02-17 08:26] VITALS: BP 123/68
--- NOTE | 2021-02-17 08:28 | NUR ---
TOOK PULSE MANUALLY FOR 1 MIN Addendum: 02/17/21 at 0828 by Marjorie Tineo RN Amended: Links added.
[2021-02-17] MEDS: HYDROchlorothiazide 25mg tablet PO SCH (08:34)
[2021-02-17] MEDS: DEXAMETHASONE 6 MG TABLET PO SCH ×2 (08:34→21:46)
[2021-02-17 12:00] VITALS: BP 129/74
--- NOTE | 2021-02-17 13:25 | NUR ---
O2 Sat at rest on room air:_86__% If below 89%: Recovery O2 Sat at rest on _2__LPM:_93__%:___% via___NASAL CANULA (mask/nasal cannula, etc..) No further documentation is necessary. If O2 Sat did not drop below 89% on room air,ambulate patient on room air. O2 Sat while ambulating on room air:___% Recovery O2 Sat while ambulating on ___LPM:___% No further documentation is necessary. If patient does not drop below 89% while ambulating, he/she does not qualify for home O2.
--- NOTE | 2021-02-17 16:04 | NUR ---
Patient in room [facility] 341. I have received report from AZ ANTONIO and had the opportunity to ask questions and assume patient care.
[2021-02-17 18:18] VITALS: BP 137/78
--- NOTE | 2021-02-17 19:18 | NUR ---
Patient in room [facility] 341. I have received report from AZ Amador and had the opportunity to ask questions and assume patient care. I called patient to ss if she was doing ok, and to let her know I am taking over care on her. Patient denies any needs at this time.
--- NOTE | 2021-02-17 19:56 | NUR ---
Problems reprioritized. Patient report given, questions answered & plan of care reviewed with AZ KERR.
[2021-02-17] MEDS: enoxaparin 40mg/0.4ml syringe SQ SCH (21:48)
[2021-02-18] VITALS: BP 134/94
[2021-02-18 05:51] VITALS: BP 119/72
--- NOTE | 2021-02-18 06:36 | NUR ---
Problems reprioritized. Patient report given, questions answered & plan of care reviewed with AZ Burgos.
--- NOTE | 2021-02-18 06:37 | NUR ---
Patient in room [facility] 341. I have received report from Phil BERNARDO and had the opportunity to ask questions and assume patient care.
[2021-02-18] MEDS: lactose-reduced food (Ensure Enlive) - 237ml bottle PO SCH (08:00)
[2021-02-18] MEDS: K and/or MAG REPLACEMENT MC SCH (08:00)
[2021-02-18] MEDS: DEXAMETHASONE 6 MG TABLET PO SCH (10:19)
[2021-02-18 11:00] VITALS: BP 121/69
--- NOTE | 2021-02-18 12:44 | NUR ---
PAGER ID: [phone] MESSAGE: Lynnelu Aisha [id number]- Pt is going home but has NO Dexamethasone med to continue taking at home.Base on the notes Pt needs to have 10 days of it. Please modify the DC orders or I can come get a prescription. Thank you so much. Loretta oHbbs
--- NOTE | 2021-02-18 14:15 | NUR ---
PT DC to home with family. Pt is A & O x4 and in no apparent distress. pt verbalizes understanding of all DC orders and the importance of taking medications per Dr's order. pt states her family will care for her. She was educated on safety use of O2 and the importance of isolating to prevent spread. Pt given her home O2 ans two extra portable tanks. pt put on a N95 mask, and was wheeled to the front where she was picked up by her daughter.
== END 2021-02-18 14:10 | disposition home or self-care (01) | DRG 177 ==
LOC: ER 06:05 → ED HOLD 10:52 → EDBEDREQ 11:27 → SUR 3N 12:40
PROVIDERS: ADMIT Family Medicine; ATTEND Family Medicine
PROC: XW033E5 Introduction of Remdesivir Anti-infective into Peripheral Vein, Percutaneous Approach, New Technology Group 5 (ICD-10-PCS; principal; 2021-02-12)
DX: U07.1 COVID-19 (principal); J12.82 Pneumonia due to coronavirus disease 2019; J96.01 Acute respiratory failure with hypoxia; N17.9 Acute kidney failure, unspecified; E11.9 Type 2 diabetes mellitus without complications; E66.01 Morbid (severe) obesity due to excess calories; M19.90 Unspecified osteoarthritis, unspecified site; M54.9 Dorsalgia, unspecified; R11.0 Nausea; G89.29 Other chronic pain; R00.1 Bradycardia, unspecified; R74.01 Elevation of levels of liver transaminase levels; M79.7 Fibromyalgia; Z68.31 Body mass index [BMI] 31.0-31.9, adult; Z78.9 Other specified health status; Z83.3 Family history of diabetes mellitus; Z87.442 Personal history of urinary calculi; Z79.84 Long term (current) use of oral hypoglycemic drugs; Z88.8 Allergy status to other drugs, medicaments and biological substances; Z79.899 Other long term (current) drug therapy
CPT/HCPCS: 36415; 71045; 80053; 82728; 82948; 83036; 83605; 83615; 83735; 83880; 84145; 84443; 85025; 85379; 85384; 85610; 85730; 86140; 87040; 87081; 93005; 94640; 94760; 97161; 97530; 99285; G0378; J1650; J1885; J2405; J7030; J8540

== ENCOUNTER 2021-03-09 16:58 | Emergency (ER) | payer BC ==
[~2021-03-09] VITALS: Ht 152.4 cm; Wt 73.5 kg
[~2021-03-09 16:58] MED LIST changes: +ALBU6.7H9 IH; +DEXA6TAB PO; -DEXA6TAB6 PO; +DIPH-930 PO; -DIPH50CA3 PO; -ERGO500014 PO; -FENO145T26 PO; -LEVO25TA7 PO; +LOSA25TA41 PO; -tamsulosin capsule PO
[2021-03-09 18:12] LABS: EOSINOPHILS # (AUTO) 0.3 X10'3 (0-0.9); EOSINOPHILS % (AUTO) 7.6 % (0-6); HEMATOCRIT 29.9 % (35.0-45.0); LYMPHOCYTES # (AUTO) 1.2 X10'3 (1.1-4.8); LYMPHOCYTES % (AUTO) 27.6 % (21-51); MEAN CORPUSCULAR HEMOGLOBIN 28.2 PG (27.0-31.0); MEAN CORPUSCULAR HGB CONC 33.5 g/dL (33.0-36.5); MEAN CORPUSCULAR VOLUME 84.3 FL (78-98); MEAN PLATELET VOLUME 8.4 FL (7.4-10.4); MONOCYTES # (AUTO) 0.3 X10'3 (0-0.9); MONOCYTES % (AUTO) 7.2 % (2-12); NEUTROPHILS # (AUTO) 2.4 X10'3 (1.8-7.7); NEUTROPHILS % (AUTO) 56.6 % (42-75); PLATELET COUNT 115 X10'3 (140-440); RED BLOOD COUNT 3.55 X10'6 (4.20-5.60); RED CELL DISTRIBUTION WIDTH 16.2 % (11.5-14.5); WHITE BLOOD COUNT 4.2 X10'3 (4.5-11.0)
[2021-03-09 18:25] LABS: PARTIAL THROMBOPLASTIN TIME 27 SECONDS (22-32)
[2021-03-09 18:29] LABS: ALANINE AMINOTRANSFERASE 68 U/L (12-78); ALBUMIN 3.1 G/DL (3.4-5.0); ALBUMIN/GLOBULIN RATIO 0.9 (1.1-1.5); ALKALINE PHOSPHATASE 146 IU/L (46-116); ANION GAP 6 (8-16); ASPARTATE AMINO TRANSFERASE 42 U/L (10-37); BILIRUBIN,TOTAL 0.9 MG/DL (0.1-1.0); BLOOD UREA NITROGEN 9 MG/DL (7-18); BUN/CREATININE RATIO 12.5 (6.6-38.0); CALCIUM 8.4 MG/DL (8.5-10.1); CHLORIDE 109 MMOL/L (99-107); CREATININE 0.72 MG/DL (0.40-0.90); GLUCOSE 106 MG/DL (70-104); SODIUM 145 MMOL/L (135-145); TOTAL CARBON DIOXIDE 30.5 MMOL/L (24-32); TOTAL PROTEIN 6.6 G/DL (6.4-8.2); eGFR 82 ML/MIN
[2021-03-09 21:18] VITALS: BP 163/89
--- NOTE | 2021-03-09 22:10 | NUR ---
VASCULAR SUTDY OF BLE COMPLETED. PT IS DC READY NOW.
--- NOTE | 2021-03-09 22:16 | NUR ---
DR. HUBBARD TALKING WITH PT AND PT IS DC READY.
== END 2021-03-09 22:30 | disposition home or self-care (01) ==
LOC: ER 16:59
DX: R60.0 Localized edema (principal); R06.02 Shortness of breath; R53.83 Other fatigue; M19.90 Unspecified osteoarthritis, unspecified site; G89.29 Other chronic pain; Z87.442 Personal history of urinary calculi; Z88.8 Allergy status to other drugs, medicaments and biological substances; Z79.899 Other long term (current) drug therapy
CPT/HCPCS: 36415; 71045; 80053; 83880; 84484; 85025; 85610; 85730; 93005; 93970; 99285